=== PATIENT | male | born 1965 | race Hispanic/Latino ===

== ENCOUNTER 2019-05-28 08:44 | Emergency (ER) | payer OTHER, SELFPAY ==
[2019-05-28] VITALS (7 sets, daily range): BP systolic 103–139; BP diastolic 71–88; PULSE 92–110; RESP 16–27; TEMP 36.7–38; O2SAT 96–100; BMI 32.7
[2019-05-28 09:42] LABS: Add Manual Diff / Slide Review NO; Basophils Absolute Auto 200 /uL (0-100); Basophils Percent Auto 1.3 % (0-2); Eosinophils Absolute Auto 100 /uL (0-450); Eosinophils Percent Auto 0.9 % (2-4); Hematocrit 42.1 % (41-53); Hemoglobin 14.7 g/dL (13.5-17.5); Lymphocytes Absolute Auto 2400 /uL (1100-4500); Mean Corpuscular HGB Conc 34.9 % (30-36); Mean Corpuscular Hemoglobin 31.2 PG (26-34); Mean Corpuscular Volume 89.3 fL (80-100); Monocytes Absolute Auto 1200 /uL (0-900); Monocytes Percent Auto 9.8 % (3-14); Neutrophils Absolute Auto 8300 /uL (1500-7000); Platelet Count 220 X10^3/uL (150-400); Red Blood Cell Count 4.71 X10^6/uL (4.5-5.9); Red Cell Distribution Width 12.7 % (11.6-14.8); White Blood Cell Count 12.2 X10^3/uL (4.5-11.0)
[2019-05-28 09:44] LABS: INR 1.3 (0.9-1.3); Prothrombin Time 14.6 SECONDS (10.1-12.7)
[2019-05-28 09:47] LABS: PTT Partial Thromboplastin Tim 31 SECONDS (26.4-36.2)
[2019-05-28 10:00] LABS: Alanine Aminotransferase 74 IU/L (<50); Albumin 4.5 g/dL (3.5-5.0); Albumin Globulin Ratio 1.3 (1.0-2.8); Alkaline Phosphatase 99 U/L (38-126); Aspartate Aminotransferase 47 IU/L (17-59); BUN Creatinine Ratio 17.8 (6-22); Bilirubin Total 1.1 mg/dL (0.2-1.3); Blood Urea Nitrogen 16 mg/dL (9-20); Calcium 8.9 mg/dL (8.4-10.2); Carbon Dioxide 28 mmol/L (22-32); Chloride 99 mmol/L (98-107); Estimated Glomerular Filt Rate > 60.0 mL/min (>60); Globulin 3.5 g/dL (1.7-4.1); Glucose 130 mg/dL (70-100); HEMOLYSIS < 15 (0-50); Lipase 18 U/L (23-300); Potassium 3.9 mmol/L (3.4-5.1); Sodium 137 mmol/L (137-145)
[2019-05-28 10:36] LABS: Appearance Urine UA CLEAR; Bilirubin Urine UA NEGATIVE (NEGATIVE); Color Urine UA YELLOW; Glucose Urine UA NEGATIVE (Negative); Ketones Urine UA NEGATIVE (NEGATIVE); Leukocyte Esterase Urine UA NEGATIVE (NEGATIVE); Nitrite Urine UA NEGATIVE (Negative); Occult Blood Urine UA NEGATIVE (Negative); Protein Urine UA TRACE (Negative); Urobilinogen Urine UA 0.2 E.U./dL (0.2); pH Urine UA 5.5 (4.5-8.0)
[2019-05-28 10:53] LABS: Bacteria Urine Few (2-10); Mucus Urine 1+ (Negative); RBC Urine 0-1/HPF (0-5/HPF); WBC Urine 0-1/HPF (0-5/HPF)
[2019-05-28 10:54] LABS: Culture Indicated Urine Cult Not Indicated
--- NOTE | 2019-05-28 11:05 | ED_ITS ---
HPI - Abdominal Pain <KENNY Ca - Last Filed: 05/28/19 18:25> General Chief Complaint: Abdominal Pain Stated Complaint: lower abdominal pain few days Time Seen by Provider: 05/28/19 10:56 Source: patient Mode of arrival: Family Vehicle Limitations: no limitations History of Present Illness HPI narrative: 53-year-old male presents emergency department complaining of left lower abdominal pain for the past week. He states the pain is a dull aching 6/10 that is worse with eating and slightly better with rest. He states the pain is been getting worse over the past week, he initially had a fever when the pain began which subsided after day. However, he developed a fever today as well. He denies any history of a colonoscopy or diverticulitis. He denies any nausea, vomiting, diarrhea, chest pain, dizziness, trauma, or other concerns. He states he usually takes a ducolax every day and he is able to have a bowel movement daily. He states his last bowel movement was this morning which was normal. He denies any blood, mucus, or changes in his stool. Related Data Home Medications Medication Instructions Recorded Confirmed No Known Home Medications 05/28/19 05/28/19 Previous Rx's Medication Instructions Recorded levofloxacin 750 mg PO DAILY 10 Days #10 tab 05/28/19 metronidazole [Flagyl] 500 mg PO Q8H 10 Days #30 tab 05/28/19 Allergies Allergy/AdvReac Type Severity Reaction Status Date / Time No Known Drug Allergies Allergy Verified 05/28/19 09:22 Review of Systems <KENNY Ca - Last Filed: 05/28/19 18:25> Review of Systems Narrative: REVIEW OF SYSTEMS: GENERAL: Reports fevers, see HPI. HENT: No head trauma, sore throat, or dysphagia. EYES: No loss of vision, double vision, eye pain, or irritation. CARDIOVASCULAR: No chest pain, palpitations, or orthopnea. RESPIRATORY: No shortness of breath or cough. GASTROINTESTINAL: Complains of LLQ abdominal pain, see HPI. No melena. GENITOURINARY: No flank pain, urinary incontinence, hesitancy, frequency, or dysuria. MUSCULOSKELETAL: No pain, weakness, or trauma. INTEGUMENTARY: No rash, lesions, or pruritus. NEURO: No numbness, tingling, memory loss, confusion, or headaches. PSYCH: No behavior or mood changes. Patient History <KENNY Ca - Last Filed: 05/28/19 18:25> Medical History (Updated 05/28/19 @ 17:09 by KENNY Ca) No significant medical problems (Acute) Social History Smoking Status: Never smoker alcohol intake frequency: a few times a week Alcohol type: beer Substance Use Type: does not use Exam <KENNY Ca - Last Filed: 05/28/19 18:25> Narrative Exam Narrative: PHYSICAL EXAMINATION: GENERAL: Well groomed, alert, and cooperative. Answers questions promptly and appropriately. Vital signs noted. HENT: Normocephalic, atraumatic. Hearing intact. Oral mucosa is pink and moist. EYES: Conjunctiva pink, sclera white, no periorbital swelling. CARDIOVASCULAR: S1 and S2 sounds normal. Regular rate and rhythm, no murmurs, clicks, or bruits. No pedal edema. RESPIRATORY: Normal respiratory rate, trachea midline, airway patent. No stridor, nasal flaring or accessory muscle use. Lungs are clear in all pierson without wheeze, rhonchi, or crackles. GASTROINTESTINAL: Bowel sounds normoactive. Abdomen is soft and tenderness to left lower quadrant, mild tenderness to umbilical region. No rebound tenderness, negative Huang sign. No organomegaly, no palpable masses. GENITALURINARY: No flank tenderness. MUSCULOSKELETAL: Normal gait and coordination. Equal tone and mass bilaterally. EXTREMITIES: CMS intact, no pedal edema. SKIN: Warm, dry, soft, appropriate color for ethnicity. No lesions, rashes, or wounds. NEURO: Alert and Oriented X 3. Good coordination. No ataxia, or sensory deficits, or cognitive issues. PSYCH: Appropriate affect and mood. Initial Vital Signs Initial Vital Signs: Vital Signs Temperature 100.4 F H 05/28/19 09:10 Pulse Rate 110 H 05/28/19 09:10 Respiratory Rate 20 05/28/19 09:10 Blood Pressure 139/83 05/28/19 09:10 Pulse Oximetry 100 05/28/19 09:10 <Jazzmine Moore DO - Last Filed: 05/28/19 20:15> Initial Vital Signs Initial Vital Signs: Vital Signs Temperature 100.4 F H 05/28/19 09:10 Pulse Rate 110 H 05/28/19 09:10 Respiratory Rate 20 05/28/19 09:10 Blood Pressure 139/83 05/28/19 09:10 Pulse Oximetry 100 05/28/19 09:10 Course <KENNY Ca - Last Filed: 05/28/19 18:25> Course Course Narrative: Initially, Dr. Christianson was consulted due to CT scan results and concern for sepsis due to cardiac, fever, increased white blood cell count around 1400. He initially admitted patient. Patient was given a 1L of fluid, 975mg of APAP, Flagyl IV, and Ciprofloxacin IV at this point. Patient's fever and heart rate decreased to 92bpm. Dr. Christianson was at bedside to evaluate patient around 1700, as patient was improving he cleared patient for discharge. Patient was agreeable to this plan. Orders Ordered: ED Orders 05/28/19 13:05 CT abdomen pelvis w con Stat Discontinued Medications Acetaminophen (Tylenol) 975 mg PO NOW ONE Stop: 05/28/19 13:30 Last Admin: 05/28/19 14:17 Dose: 975 mg Documented by: GARCÍA Sodium Chloride (Normal Saline 0.9%) 1,000 mls @ 1,000 mls/hr IV BOLUS ONE Stop: 05/28/19 14:28 Last Infusion: 05/28/19 16:33 Dose: 0 mls/hr Documented by: Admin: 05/28/19 14:00 Dose: 1,000 mls/hr Documented by: GARCÍA Metronidazole (Flagyl) 500 mg in 100 mls @ 100 mls/hr IV Q8H [facility] Last Infusion: 05/28/19 16:32 Dose: 0 mls/hr Documented by: Admin: 05/28/19 14:38 Dose: 100 mls/hr Documented by: GARCÍA Ciprofloxacin (Cipro) 400 mg in 200 mls @ 200 mls/hr IV NOW [facility] Last Infusion: 05/28/19 17:42 Dose: 0 mls/hr Documented by: Admin: 05/28/19 16:32 Dose: 200 mls/hr Documented by: ALETHEA Consultations Consultation #1: Patient was staffed with Dr. Moore. Vital Signs Vital signs: Vital Signs - 8 hr 05/28/19 14:08 05/28/19 14:10 05/28/19 15:00 Temperature 98.1 F Pulse Rate 106 H 107 H 101 H Respiratory Rate 16 22 27 H Blood Pressure [Right Arm] 103/71 103/71 125/84 Pulse Oximetry 97 96 96 05/28/19 16:00 05/28/19 17:47 Temperature Pulse Rate 95 H 92 H Respiratory Rate 16 16 Blood Pressure [Right Arm] 117/80 124/88 Pulse Oximetry 96 96 <Jazzmine Moore, DO - Last Filed: 05/28/19 20:15> Orders Ordered: ED Orders 05/28/19 13:05 CT abdomen pelvis w con Stat Discontinued Medications Acetaminophen (Tylenol) 975 mg PO NOW ONE Stop: 05/28/19 13:30 Last Admin: 05/28/19 14:17 Dose: 975 mg Documented by: GARCÍA Sodium Chloride (Normal Saline 0.9%) 1,000 mls @ 1,000 mls/hr IV BOLUS ONE Stop: 05/28/19 14:28 Last Infusion: 05/28/19 16:33 Dose: 0 mls/hr Documented by: Admin: 05/28/19 14:00 Dose: 1,000 mls/hr Documented by: GARCÍA Metronidazole (Flagyl) 500 mg in 100 mls @ 100 mls/hr IV Q8H [facility] Last Infusion: 05/28/19 16:32 Dose: 0 mls/hr Documented by: Admin: 05/28/19 14:38 Dose: 100 mls/hr Documented by: GARCÍA Ciprofloxacin (Cipro) 400 mg in 200 mls @ 200 mls/hr IV NOW [facility] Last Infusion: 05/28/19 17:42 Dose: 0 mls/hr Documented by: Admin: 05/28/19 16:32 Dose: 200 mls/hr Documented by: ALETHEA Vital Signs Vital signs: Vital Signs - 8 hr 05/28/19 14:08 05/28/19 14:10 05/28/19 15:00 Temperature 98.1 F Pulse Rate 106 H 107 H 101 H Respiratory Rate 16 22 27 H Blood Pressure [Right Arm] 103/71 103/71 125/84 Pulse Oximetry 97 96 96 05/28/19 16:00 05/28/19 17:47 Temperature Pulse Rate 95 H 92 H Respiratory Rate 16 16 Blood Pressure [Right Arm] 117/80 124/88 Pulse Oximetry 96 96 MDM - Abdominal Pain <Gillian KENNY Tracey - Last Filed: 05/28/19 18:25> Medical Records Attestation: I reviewed the patient's medical records. Lab Data Attestation: I reviewed the patient's lab results. Result diagrams: 05/28/19 09:28 05/28/19 09:28 Labs: Lab Results 05/28/19 05/28/19 05/28/19 Range/Units 09:28 09:28 09:28 WBC 12.2 H (4.5-11.0) X10^3/uL RBC 4.71 (4.5-5.9) X10^6/uL Hgb 14.7 (13.5-17.5) g/dL Hct 42.1 (41-53) % MCV 89.3 (80-100) fL MCH 31.2 (26-34) PG MCHC 34.9 (30-36) % RDW 12.7 (11.6-14.8) % Plt Count 220 (150-400) X10^3/uL Neut % (Auto) 68.0 (50-75) % Lymph % (Auto) 20.0 L (25-40) % [place] % (Auto) 9.8 (3-14) % Eos % (Auto) 0.9 L (2-4) % Baso % (Auto) 1.3 (0-2) % Neut # (Auto) 8300 H (4190-4839) /uL Lymph # (Auto) 2400 (1791-7427) /uL [place] # (Auto) 1200 H (0-900) /uL Eos # (Auto) 100 (0-450) /uL Baso # (Auto) 200 H (0-100) /uL PT 14.6 H (10.1-12.7) SECONDS INR 1.3 (0.9-1.3) APTT 31 (26.4-36.2) SECONDS Sodium 137 (137-145) mmol/L Potassium 3.9 (3.4-5.1) mmol/L Chloride 99 (98-107) mmol/L Carbon Dioxide 28 (22-32) mmol/L BUN 16 (9-20) mg/dL Creatinine 0.90 (0.66-1.25) mg/dL Estimated GFR > 60.0 (>60) mL/min BUN/Creatinine Ratio 17.8 (6-22) Glucose 130 H (70-100) mg/dL Calcium 8.9 (8.4-10.2) mg/dL Total Bilirubin 1.1 (0.2-1.3) mg/dL AST 47 (17-59) IU/L ALT 74 H (<50) IU/L Alkaline Phosphatase 99 (38-126) U/L Total Protein 8.0 (6.3-8.2) g/dL Albumin 4.5 (3.5-5.0) g/dL Globulin 3.5 (1.7-4.1) g/dL Albumin/Globulin Ratio 1.3 (1.0-2.8) Lipase 18 L (23-300) U/L Urine Color Urine Appearance Urine pH (4.5-8.0) Ur Specific [place] (1.000-1.035) Urine Protein (Negative) Urine Glucose (UA) (Negative) g/dL Urine Ketones (NEGATIVE) Urine Occult Blood (Negative) Urine Nitrate (Negative) Urine Bilirubin (NEGATIVE) Urine Urobilinogen (0.2) E.U./dL Ur Leukocyte Esterase (NEGATIVE) Urine RBC (0-5/HPF) Urine WBC (0-5/HPF) Urine Bacteria (None) Urine Mucus (Negative) Ur Culture Indicated? 05/28/19 Range/Units 09:30 WBC (4.5-11.0) X10^3/uL RBC (4.5-5.9) X10^6/uL Hgb (13.5-17.5) g/dL Hct (41-53) % MCV (80-100) fL MCH (26-34) PG MCHC (30-36) % RDW (11.6-14.8) % Plt Count (150-400) X10^3/uL Neut % (Auto) (50-75) % Lymph % (Auto) (25-40) % [place] % (Auto) (3-14) % Eos % (Auto) (2-4) % Baso % (Auto) (0-2) % Neut # (Auto) (0201-1273) /uL Lymph # (Auto) (0098-0951) /uL [place] # (Auto) (0-900) /uL Eos # (Auto) (0-450) /uL Baso # (Auto) (0-100) /uL PT (10.1-12.7) SECONDS INR (0.9-1.3) APTT (26.4-36.2) SECONDS Sodium (137-145) mmol/L Potassium (3.4-5.1) mmol/L Chloride (98-107) mmol/L Carbon Dioxide (22-32) mmol/L BUN (9-20) mg/dL Creatinine (0.66-1.25) mg/dL Estimated GFR (>60) mL/min BUN/Creatinine Ratio (6-22) Glucose (70-100) mg/dL Calcium (8.4-10.2) mg/dL Total Bilirubin (0.2-1.3) mg/dL AST (17-59) IU/L ALT (<50) IU/L Alkaline Phosphatase (38-126) U/L Total Protein (6.3-8.2) g/dL Albumin (3.5-5.0) g/dL Globulin (1.7-4.1) g/dL Albumin/Globulin Ratio (1.0-2.8) Lipase (23-300) U/L Urine Color Yellow Urine Appearance Clear Urine pH 5.5 (4.5-8.0) Ur Specific [place] 1.020 (1.000-1.035) Urine Protein Trace H (Negative) Urine Glucose (UA) Negative (Negative) g/dL Urine Ketones Negative (NEGATIVE) Urine Occult Blood Negative (Negative) Urine Nitrate Negative (Negative) Urine Bilirubin Negative (NEGATIVE) Urine Urobilinogen 0.2 (0.2) E.U./dL Ur Leukocyte Esterase Negative (NEGATIVE) Urine RBC 0-1/hpf (0-5/HPF) Urine WBC 0-1/hpf (0-5/HPF) Urine Bacteria Few (2-10) H (None) Urine Mucus 1+ H (Negative) Ur Culture Indicated? Cult not indicated Imaging Data CT scan - abdomen: Radiologist's impression: [address] [address] [address] Scan Report Signed Patient: Rhett Alarcon EMR#: [id number] : 1965Acct:[id number] Age/Sex: 53 / MDate of Service: 05/28/19 Loc: ED Accession Number: [id number] Procedure: CT abdomen pelvis w con Ordering Provider: Gillian Tracey PROCEDURE: CT ABDOMEN PELVIS W CON INDICATIONS: LLQ pain and fever, r/o diverticulitis, elevated AST TECHNIQUE: After the administration of intravenous contrast, 5 mm thick sections acquired from the diaphragm to the symphysis. 5 mm coronal and sagittal reformats were acquired. For radiation dose reduction, the following was used: automated exposure control, adjustment of mA and/or kV according to patient size. COMPARISON: None. FINDINGS: Image quality: Excellent. ABDOMEN: Lung bases: There is mild dependent atelectasis. There is a small subpleural nodule in the right lower lobe measuring approximately 0.5 cm. There is a small nodule within the left lingula measuring up to 0.5 cm. Heart size is normal. Solid organs: There is diffuse hypoattenuation of the liver consistent with fatty infiltration with relative sparing along the gallbladder fossa. The gallbladder appears within normal limits without calcified gallstones. Biliary system is non- dilated. Pancreas enhances normally. No peripancreatic fat stranding or fluid collections. No pancreatic duct dilatation. The spleen is normal in size. No adrenal nodules. Kidneys demonstrate no hydronephrosis. Peritoneum and bowel: Small bowel loops demonstrate normal wall thickness and caliber. The appendix is normal in appearance. There is colonic diverticulosis. Associated peridiverticular inflammatory fat stranding as well segmental colonic wall t hickening is demonstrated in the sigmoid colon consistent with diverticulitis. There is adjacent pericolonic edema without a discrete loculated diverticular abscess. No definite macroscopic free air. Nodes and vessels: No retroperitoneal or mesenteric adenopathy by size criteria. Aorta and inferior vena cava are normal in size. Miscellaneous: No ventral hernias. PELVIS: Genitourinary: The urinary bladder is partially distended. There is mild bladder wall thickening and associated fat stranding. Miscellaneous: No inguinal hernias or adenopathy. Bones: No suspicious bony lesions. No vertebral body compression fractures. IMPRESSION: 1. Sigmoid diverticulitis with associated pericolonic edema which may reflect a phlegmon without discrete loculated abscess collection. No definite macroscopic free air. 2. Mild bladder wall thickening and fat stranding suggestive of a mild cystitis. Recommend correlation with urinalysis. 3. Hepatic steatosis. 4. Small pulmonary nodules measuring up to 5 mm in the lung bases. The findings are nonspecific but if patient is at high risk for malignancy a followup CT is recommended in 12 months to demonstrate stability. Dictated by: Mynor Garza M.D. on 05/28/2019 at 13:21 Approved by: Mynor Garza M.D. on 05/28/2019 at 13:28 ECG Data Interpretation: Sinus tachycardia, rate 110, OR interval 162, QTC 396. No ST elevation or ST depression, no T-wave abnormality, no ectopy. EKG was also viewed by Dr. Moore per protocol. MDM Narrative Medical decision making narrative: 53-year-old male with newly diagnosed diverticulitis with a phelgmon without an abscess or perforation, he presents to the emergency department tachycardic and febrile and with a slightly elevated white blood cell count. Initially he was admitted to Dr. Christianson to observe phelgmon. After IV fluid, IV antibiotics, and Tylenol patient's significantly improved. He had no vomiting during this time and remained hemodynamically stable, he was later cleared for discharge by Dr. Christianson. Patient was able to tolerate p.o. liquids before discharge and his abdominal exam produced mild to moderate tenderness but not severe tenderness. Patient's symptoms are less l ikely caused by septicemia and most likely dehydration as patient's condition significantly improved after administration of fluids. Patient was discharged with Flagyl and levofloxacin and given strict return precautions for new or worsening symptoms. Patient agreed to plan of care and had no further questions at this time. <Jazzmine Moore, DO - Last Filed: 05/28/19 20:15> Lab Data Labs: Lab Results 05/28/19 05/28/19 05/28/19 Range/Units 09:28 09:28 09:28 WBC 12.2 H (4.5-11.0) X10^3/uL RBC 4.71 (4.5-5.9) X10^6/uL Hgb 14.7 (13.5-17.5) g/dL Hct 42.1 (41-53) % MCV 89.3 (80-100) fL MCH 31.2 (26-34) PG MCHC 34.9 (30-36) % RDW 12.7 (11.6-14.8) % Plt Count 220 (150-400) X10^3/uL Neut % (Auto) 68.0 (50-75) % Lymph % (Auto) 20.0 L (25-40) % [place] % (Auto) 9.8 (3-14) % Eos % (Auto) 0.9 L (2-4) % Baso % (Auto) 1.3 (0-2) % Neut # (Auto) 8300 H (6771-2762) /uL Lymph # (Auto) 2400 (3202-2032) /uL [place] # (Auto) 1200 H (0-900) /uL Eos # (Auto) 100 (0-450) /uL Baso # (Auto) 200 H (0-100) /uL PT 14.6 H (10.1-12.7) SECONDS INR 1.3 (0.9-1.3) APTT 31 (26.4-36.2) SECONDS Sodium 137 (137-145) mmol/L Potassium 3.9 (3.4-5.1) mmol/L Chloride 99 (98-107) mmol/L Carbon Dioxide 28 (22-32) mmol/L BUN 16 (9-20) mg/dL Creatinine 0.90 (0.66-1.25) mg/dL Estimated GFR > 60.0 (>60) mL/min BUN/Creatinine Ratio 17.8 (6-22) Glucose 130 H (70-100) mg/dL Calcium 8.9 (8.4-10.2) mg/dL Total Bilirubin 1.1 (0.2-1.3) mg/dL AST 47 (17-59) IU/L ALT 74 H (<50) IU/L Alkaline Phosphatase 99 (38-126) U/L Total Protein 8.0 (6.3-8.2) g/dL Albumin 4.5 (3.5-5.0) g/dL Globulin 3.5 (1.7-4.1) g/dL Albumin/Globulin Ratio 1.3 (1.0-2.8) Lipase 18 L (23-300) U/L Urine Color Urine Appearance Urine pH (4.5-8.0) Ur Specific [place] (1.000-1.035) Urine Protein (Negative) Urine Glucose (UA) (Negative) g/dL Urine Ketones (NEGATIVE) Urine Occult Blood (Negative) Urine Nitrate (Negative) Urine Bilirubin (NEGATIVE) Urine Urobilinogen (0.2) E.U./dL Ur Leukocyte Esterase (NEGATIVE) Urine RBC (0-5/HPF) Urine WBC (0-5/HPF) Urine Bacteria (None) Urine Mucus (Negative) Ur Culture Indicated? 05/28/19 Range/Units 09:30 WBC (4.5-11.0) X10^3/uL RBC (4.5-5.9) X10^6/uL Hgb (13.5-17.5) g/dL Hct (41-53) % MCV (80-100) fL MCH (26-34) PG MCHC (30-36) % RDW (11.6-14.8) % Plt Count (150-400) X10^3/uL Neut % (Auto) (50-75) % Lymph % (Auto) (25-40) % [place] % (Auto) (3-14) % Eos % (Auto) (2-4) % Baso % (Auto) (0-2) % Neut # (Auto) (4469-0958) /uL Lymph # (Auto) (1158-6870) /uL [place] # (Auto) (0-900) /uL Eos # (Auto) (0-450) /uL Baso # (Auto) (0-100) /uL PT (10.1-12.7) SECONDS INR (0.9-1.3) APTT (26.4-36.2) SECONDS Sodium (137-145) mmol/L Potassium (3.4-5.1) mmol/L Chloride (98-107) mmol/L Carbon Dioxide (22-32) mmol/L BUN (9-20) mg/dL Creatinine (0.66-1.25) mg/dL Estimated GFR (>60) mL/min BUN/Creatinine Ratio (6-22) Glucose (70-100) mg/dL Calcium (8.4-10.2) mg/dL Total Bilirubin (0.2-1.3) mg/dL AST (17-59) IU/L ALT (<50) IU/L Alkaline Phosphatase (38-126) U/L Total Protein (6.3-8.2) g/dL Albumin (3.5-5.0) g/dL Globulin (1.7-4.1) g/dL Albumin/Globulin Ratio (1.0-2.8) Lipase (23-300) U/L Urine Color Yellow Urine Appearance Clear Urine pH 5.5 (4.5-8.0) Ur Specific [place] 1.020 (1.000-1.035) Urine Protein Trace H (Negative) Urine Glucose (UA) Negative (Negative) g/dL Urine Ketones Negative (NEGATIVE) Urine Occult Blood Negative (Negative) Urine Nitrate Negative (Negative) Urine Bilirubin Negative (NEGATIVE) Urine Urobilinogen 0.2 (0.2) E.U./dL Ur Leukocyte Esterase Negative (NEGATIVE) Urine RBC 0-1/hpf (0-5/HPF) Urine WBC 0-1/hpf (0-5/HPF) Urine Bacteria Few (2-10) H (None) Urine Mucus 1+ H (Negative) Ur Culture Indicated? Cult not indicated Discharge Plan Departure Patient Disposition: Home Clinical Impression: Diverticulitis Discharge Date/Time: 05/28/19 17:57 Instructions: DI for Diverticulitis Activity Restrictions/Additional Instructions: Thank you for entrusting me with your care today. As discussed, you have diverticulitis, which is an infection in your colon. I prescribed you antibiotics, please take these as directed. Follow up with your primary care provider in the next week for re-evaluation. Return emergency department if she develops new or worsening symptoms such as high fevers, uncontrollable vomiting, chest pain, shortness of breath, or other concerns. Prescriptions: New metronidazole [Flagyl] 500 mg tablet 500 mg PO Q8H 10 Days Qty: 30 RF: 0 levofloxacin 750 mg tablet 750 mg PO DAILY 10 Days Qty: 10 RF: 0 No Action No Known Home Medications RF: 0
--- NOTE | 2019-05-28 13:05 | DI.CT.S_ITS ---
PROCEDURE: CT ABDOMEN PELVIS W CON INDICATIONS: LLQ pain and fever, r/o diverticulitis, elevated AST TECHNIQUE: After the administration of intravenous contrast, 5 mm thick sections acquired from the diaphragm to the symphysis. 5 mm coronal and sagittal reformats were acquired. For radiation dose reduction, the following was used: automated exposure control, adjustment of mA and/or kV according to patient size. COMPARISON: None. FINDINGS: Image quality: Excellent. ABDOMEN: Lung bases: There is mild dependent atelectasis. There is a small subpleural nodule in the right lower lobe measuring approximately 0.5 cm. There is a small nodule within the left lingula measuring up to 0.5 cm. Heart size is normal. Solid organs: There is diffuse hypoattenuation of the liver consistent with fatty infiltration with relative sparing along the gallbladder fossa. The gallbladder appears within normal limits without calcified gallstones. Biliary system is non-dilated. Pancreas enhances normally. No peripancreatic fat stranding or fluid collections. No pancreatic duct dilatation. The spleen is normal in size. No adrenal nodules. Kidneys demonstrate no hydronephrosis. Peritoneum and bowel: Small bowel loops demonstrate normal wall thickness and caliber. The appendix is normal in appearance. There is colonic diverticulosis. Associated peridiverticular inflammatory fat stranding as well segmental colonic wall thickening is demonstrated in the sigmoid colon consistent with diverticulitis. There is adjacent pericolonic edema without a discrete loculated diverticular abscess. No definite macroscopic free air. Nodes and vessels: No retroperitoneal or mesenteric adenopathy by size criteria. Aorta and inferior vena cava are normal in size. Miscellaneous: No ventral hernias. PELVIS: Genitourinary: The urinary bladder is partially distended. There is mild bladder wall thickening and associated fat stranding. Miscellaneous: No inguinal hernias or adenopathy. Bones: No suspicious bony lesions. No vertebral body compression fractures. IMPRESSION: 1. Sigmoid diverticulitis with associated pericolonic edema which may reflect a phlegmon without discrete loculated abscess collection. No definite macroscopic free air. 2. Mild bladder wall thickening and fat stranding suggestive of a mild cystitis. Recommend correlation with urinalysis. 3. Hepatic steatosis. 4. Small pulmonary nodules measuring up to 5 mm in the lung bases. The findings are nonspecific but if patient is at high risk for malignancy a followup CT is recommended in 12 months to demonstrate stability. Dictated by: Mynor Garza M.D. on 05/28/2019 at 13:21 Approved by: Mynor Garza M.D. on 05/28/2019 at 13:28
[2019-05-28] MEDS: SODIUM CHLORIDE 0.9% 1,000 ML 1000 ML IV (14:00)
[2019-05-28] MEDS: ACETAMINOPHEN 325 MG TABLET 975 MG PO (14:17)
[2019-05-28] MEDS: metroNIDAZOLE 500 MG/100 ML PIGGYBACK 100 MG IV (14:38)
[2019-05-28] MEDS: CIPROFLOXACIN 400 MG/200 ML PIGGYBACK 200 MG IV (16:32)
== END 2019-05-28 17:57 | disposition home or self-care (01) ==
LOC: ED 10:56 → AC 14:17
PROVIDERS: Emergency Medicine; Emergency Provider Nurse Practitioner
DX: K57.92 Diverticulitis of intestine, part unspecified, without perforation or abscess without bleeding (principal); R79.89 Other specified abnormal findings of blood chemistry; R00.0 Tachycardia, unspecified
CPT/HCPCS: 36415; 74177; 80053; 81001; 83690; 85025; 85610; 85730; 93005; 96361; 96365; 96366; 96367; 99284; 99285; J0744; Q9967